=== PATIENT | female | born 1995 | race African-American/Black ===

== ENCOUNTER 2021-08-17 20:53 | Outpatient (CLI) | payer BC ==
[~2021-08-17] VITALS: Ht 147.3 cm; Wt 73.4 kg
[2021-08-17 21:17] VITALS: BP 135/83
[2021-08-17 21:18] LABS: BILIRUBIN,URINE NEGATIVE (NEGATIVE); CLARITY,URINE CLEAR; COLOR,URINE YELLOW; GLUCOSE, URINE (UA) NEGATIVE (NEGATIVE); KETONES,URINE 3+ (NEGATIVE); LEUKOCYTE ESTERASE ,URINE 1+ (NEGATIVE); NITRITE,URINE NEGATIVE (NEGATIVE); PROTEIN,URINE NEGATIVE (NEGATIVE)
[2021-08-17 21:25] LABS: BACTERIA,URINE LARGE /HPF; RBC,URINE 0-2 /HPF
[2021-08-17] MEDS ORDERED: ACETAMINOPHEN 500 MG TAB (TYLENOL) PO ONE (22:00)
[2021-08-17] MEDS ORDERED: LACTATED RINGERS 1,000 ML IV ONE (22:00)
[2021-08-17] MEDS ORDERED: ACETAMINOPHEN 500 MG TAB (TYLENOL) ONE (22:03)
[2021-08-17 23:30] VITALS: BP 140/74
[2021-08-17 23:35] VITALS: BP 139/73
[2021-08-17 23:40] VITALS: BP 137/79
[2021-08-18 00:05] VITALS: BP 138/75
--- NOTE | 2021-08-18 08:38 | Physician Query-Final Dx ---
Clinic Account Progress/Dx Physician Query: Please give diagnosis Please include # weeks gestation Date of Service August 17, 2021 at 20:53 JARON,MarAug 18, 2021 08:38
== END 2021-08-18 00:05 | disposition home or self-care (01) ==
LOC: WSo 20:53 → LDRP 21:02 → WSo 08-18 00:05
PROVIDERS: ATTEND Family Medicine
DX: O26.893 Other specified pregnancy related conditions, third trimester (principal); R10.9 Unspecified abdominal pain; Z3A.38 38 weeks gestation of pregnancy
CPT/HCPCS: 81000; 87088; 96360; G0463; 99213

== ENCOUNTER 2021-08-25 06:18 | Inpatient (IN) | payer BC ==
[2021-08-25] VITALS (63 sets, daily range): BP systolic 109–154; BP diastolic 54–89
[~2021-08-25] VITALS: Ht 147.3 cm; Wt 74.0 kg
[2021-08-25] MEDS ORDERED: MINERAL OIL 30 ML TOP PRN (07:45)
[2021-08-25 07:54] LABS: BASOPHILS % (AUTO) 0 % (0-10); EOSINOPHILS # (AUTO) 0.3 10^3/uL (0.0-0.3); EOSINOPHILS % (AUTO) 2 % (0-10); HEMATOCRIT 31 % (35-52); HEMOGLOBIN 10.6 g/dL (11.5-16.0); LYMPHOCYTES # (AUTO) 2.2 X 10^3 (1.0-4.0); LYMPHOCYTES % (AUTO) 15 % (12-44); MEAN CORPUSCULAR HEMOGLOBIN 29 pg (25-34); MEAN CORPUSCULAR HGB CONC 35 g/dL (32-36); MEAN CORPUSCULAR VOLUME 83 fL (80-99); MONOCYTES % (AUTO) 7 % (0-12); NEUTROPHILS # (AUTO) 10.4 X 10^3 (1.8-7.8); NEUTROPHILS % (AUTO) 74 % (42-75); PLATELET COUNT 208 10^3/uL (130-400)
[2021-08-25] MEDS: D5 LR IV SOLUTION 1,000 ML IV SCH ×2 (07:54→16:05)
[2021-08-25 08:15] LABS: CLARITY,URINE CLEAR; COLOR,URINE YELLOW; GLUCOSE, URINE (UA) NEGATIVE (NEGATIVE); KETONES,URINE NEGATIVE (NEGATIVE); NITRITE,URINE NEGATIVE (NEGATIVE); PROTEIN,URINE NEGATIVE (NEGATIVE)
[2021-08-25 08:16] LABS: BACTERIA,URINE TRACE /HPF; BILIRUBIN,URINE NEGATIVE (NEGATIVE); LEUKOCYTE ESTERASE ,URINE 1+ (NEGATIVE); WBC,URINE RARE /HPF
--- NOTE | 2021-08-25 10:03 | History & Physical-OB ---
OB - Chief Complaint & HPI Date/Time Date of Admission: Date of Admission: Aug 25, 2021 at 06:18 Date seen by a Provider: Aug 25, 2021 Time Seen by a Provider: 09:20 Chief Complaint/History OB-Reason for Admission/Chief: Induction of Labor Hx : 1 Hx Para: 0 Expected Date of Delivery: Aug 27, 2021 Gestational Age in Weeks: 39 Gestational Age in Days: 5 History of Labs A neg, Ab neg, Rub Imm HIV/RPR/HepB/C NR Normal 1 hr GTT GBS neg Allergies and Home Medications Allergies Coded Allergies: No Known Drug Allergies (Unverified , 08/17/21) Patient Home Medication List Home Medication List Reviewed: Yes OB - History Hx of Present Care: Yes Ultrasounds: Normal mid trimester US Obstetrical Complications: None Medical Complications: None Obstetrical History Hx : 1 Patient Past Medical History NA Social History/Family History Alcohol Use: Denies Use Recreational Drug Use: No Smoking Cessation: Never smoker 2nd Hand Smoke Exposure: No Immunizations Influenza Vaccine Up-to-Date: No; Not Current Hepatitis A: No Hepatitis B: No Tetanus Booster (TDap): Less than 5yrs Rubella: immune RPR/VDRL: Negative GBS Status: Negative HBsAG: Negative OB - Admission Exam Physical Exam Vitals: Vital Signs 08/25/21 07:56 Temp 36.4 Pulse 76 Resp 18 Pulse Ox 99 O2 Delivery Room Air HEENT: NCAT Heart: Rhythm Normal Lungs: Clear Abdomen: Gravid Cervical Dilatation: 4cm Effacement: 100% Station: -1 Membranes: Intact Heart Rate: 130's Accelerations: Accelerations Present Decelerations: No Decelerations Short Term Variability: Present Concrete Floor Installer Variability: Average (6-25) Contractions on Admission: 6-10 Minutes Apart Intensity: Moderate Pedersen Scoring Tool (Modified) Dilation (cm): 3-4cm (2) Effacement (%): 80-100% (3) Descent/Station: -1,0 (2) Cervix Consistency: Medium(1) Cervix Position: Middle/Mid-Position (1) Subtract 1 point for: Nulliparity (-1) Pedersen Score: 8 Labs Laboratory Tests Test 08/25/21 07:49 Range/Units White Blood Count 14.0 H 4.3-11.0 10^3/uL Red Blood Count 3.66 L 3.80-5.11 10^6/uL Hemoglobin 10.6 L 11.5-16.0 g/dL Hematocrit 31 L 35-52 % Mean Corpuscular Volume 83 80-99 fL Mean Corpuscular Hemoglobin 29 25-34 pg Mean Corpuscular Hemoglobin Concent 35 32-36 g/dL Red Cell Distribution Width 13.6 10.0-14.5 % Platelet Count 208 130-400 10^3/uL Mean Platelet Volume 12.0 9.0-12.2 fL Immature Granulocyte % (Auto) 1 % Neutrophils (%) (Auto) 74 42-75 % Lymphocytes (%) (Auto) 15 12-44 % Monocytes (%) (Auto) 7 0-12 % Eosinophils (%) (Auto) 2 0-10 % Basophils (%) (Auto) 0 0-10 % Neutrophils # (Auto) 10.4 H 1.8-7.8 X 10^3 Lymphocytes # (Auto) 2.2 1.0-4.0 X 10^3 Monocytes # (Auto) 1.0 0.0-1.0 X 10^3 Eosinophils # (Auto) 0.3 0.0-0.3 10^3/uL Basophils # (Auto) 0.0 0.0-0.1 10^3/uL Immature Granulocyte # (Auto) 0.1 0.0-0.1 10^3/uL Urine Color YELLOW Urine Clarity CLEAR Urine pH 6.0 5-9 Urine Specific [place] 1.010 L 1.016-1.022 Urine Protein NEGATIVE NEGATIVE Urine Glucose (UA) NEGATIVE NEGATIVE Urine Ketones NEGATIVE NEGATIVE Urine Nitrite NEGATIVE NEGATIVE Urine Bilirubin NEGATIVE NEGATIVE Urine Urobilinogen 0.2 < = 1.0 MG/DL Urine Leukocyte Esterase 1+ H NEGATIVE Urine RBC (Auto) NEGATIVE NEGATIVE Urine RBC NONE /HPF Urine WBC RARE /HPF Urine Squamous Epithelial Cells 2-5 /HPF Urine Crystals NONE /LPF Urine Bacteria TRACE /HPF Urine Casts NONE /LPF Urine Mucus NEGATIVE /LPF Urine Culture Indicated NO OB - Assessment/Plan/Diagnosis Assessment Assessment: induction of labor Admission Dx third trimester 39 week gestation Admission Status: Inpatient Order (span 2 midnights) Reason for Inpatient Admission: labor Plan Other Plan 26 yo F G1 @ 39.5 wga here for IOL Plan - GBS neg - AROM clear 0940 - Epidural ok if desired - Expectant management RAMSEY RAJPUT MD Aug 25, 2021 10:03
[2021-08-25] MEDS ORDERED: OXYTOCIN PRE-MIX DRIP 500 ML IV SCH (10:45)
[2021-08-25] MEDS ORDERED: OXYTOCIN PRE-MIX DRIP 500 ML IV ONE (10:50)
[2021-08-25] MEDS ORDERED: CATHETER FLUSH 10 ML SYR IV SCH (14:00)
[2021-08-25] MEDS ORDERED: fentaNYL 2 mcg/ml BUPIVA 0.125 100 ML ONE (16:46)
[2021-08-25] MEDS ORDERED: fentaNYL INJ 100 MCG/2 ML AMP ONE (17:01)
[2021-08-25] MEDS ORDERED: BUPIVACAINE 0.25% 10 ML (SENSORCAINE) VIAL ONE (17:01)
[2021-08-25] MEDS ORDERED: ONDANSETRON 4 MG/2 ML (SDV) Z0FRAN IV PRN (17:45)
[2021-08-25] MEDS ORDERED: EPIDURAL (fentaNYL 2 MCG/ML BUPIVA 0.125%)100 ML BAG EPI PRN (17:45)
[2021-08-25] MEDS ORDERED: NALOXONE 0.4 MG/ML 1 ML (NARCAN) VIAL IV PRN (17:45)
[2021-08-25] MEDS ORDERED: fentaNYL INJ 100 MCG/2 ML AMP INJ ONE (17:45)
[2021-08-25] MEDS ORDERED: LACTATED RINGERS 1,000 ML IV ONE ×2 (17:45)
[2021-08-25] MEDS ORDERED: LIDOCAINE/EPI 2% 1:200,00 (XYLOCAINE) 10 ML VIAL ONE (21:40)
[2021-08-26] VITALS (13 sets, daily range): BP systolic 112–132; BP diastolic 56–91
[2021-08-26] MEDS: OXYTOCIN PRE-MIX DRIP 500 ML IV SCH ×2 (01:04→01:57)
--- NOTE | 2021-08-26 01:14 | OB Labor & Delivery Record ---
Vag Delivery Note Vag Delivery Note Date of Delivery: 08/26/21 Preoperative Diagnosis: Grecia Estevez is a (26 /Para 1 / 0, Gestational Age (wks)39.5 here for IOL Postoperative Diagnosis: Same Surgeon: RAMSEY RAJPUT MD Sausage Stuffer: None Anesthesia: Epidural Delivery Type: @ 0037 Findings: Viable female infant, apgars 7/9, weight Lacerations: Intact placenta with 3 vessel cord. No nuchal cord, body cord or shoulder dystocia Estimated Blood Loss: 125 ml Complications: None Condition: Stable Description of Procedure: The patient is a 26 year old female who presented for IOL. She was admitted and informed consent was obtained. Her labor course was unremarkable. She progressed to complete dilatation and began to push. She was then set up for delivery. The 's head was delivered atraumatically in the BUBBA position. The shoulders and remainder of the 's body were then delivered without difficulty. Upon delivery, the head was held below the level of the perineum and the mouth and nares were bulb suctioned. The cord was doubly clamped and cut by FOB after 3 min delay and the was attended to by the pediatric staff on maternal abdomen. An intact placenta with 3-vessel cord delivered via Joy and there was found to be minimal bleeding.~ Vigorous fundal massage was performed and the fundus was found to be firm. IV oxytocin was given. Examination of the vagina and perineum revealed a 1st degree laceration repaired in the usual fashion with 3-0 vicryl suture. Following the repair, sponge, instrument and needle counts were correct. Mom and baby were both in stable condition in the labor suite. Vitals - Labs Vital Signs - I&O Vital Signs Date Time Temp Pulse Resp B/P (MAP) Pulse Ox O2 Delivery O2 Flow Rate FiO2 08/25/21 23:30 88 18 128/63 (84) Room Air 08/25/21 23:15 76 18 116/76 (89) Room Air 08/25/21 23:00 80 18 120/78 (92) Room Air 08/25/21 22:45 18 120/74 (89) Room Air 08/25/21 22:30 84 18 128/76 (93) Room Air 08/25/21 22:15 81 18 132/80 (97) Room Air 08/25/21 22:00 115 18 140/69 (92) 99 Room Air 08/25/21 21:45 88 18 117/58 (77) Room Air 08/25/21 21:30 80 18 112/54 (73) Room Air 08/25/21 21:15 36.4 85 18 123/64 (83) 98 Room Air 08/25/21 21:00 85 18 124/64 (84) Room Air 08/25/21 20:45 82 18 132/73 (92) Room Air 08/25/21 20:30 77 18 125/72 (89) Room Air 08/25/21 20:15 73 18 125/73 (90) Room Air 08/25/21 20:00 72 18 121/73 (89) Room Air 08/25/21 19:45 36.8 69 18 117/68 (84) Room Air 08/25/21 19:30 82 18 117/68 (84) Room Air 08/25/21 19:15 77 18 116/66 (83) Room Air 08/25/21 19:00 89 18 118/70 (86) Room Air 08/25/21 18:45 74 18 124/72 (89) Room Air 08/25/21 18:30 68 18 125/66 (85) Room Air 08/25/21 18:15 Room Air 08/25/21 18:05 72 18 119/69 (86) Room Air 08/25/21 18:00 66 18 115/66 (82) Room Air 08/25/21 17:55 65 18 125/73 (90) Room Air 08/25/21 17:50 67 18 117/71 (86) Room Air 08/25/21 17:45 71 18 123/77 (92) Room Air 08/25/21 17:40 69 18 121/76 (91) Room Air 08/25/21 17:36 75 18 125/72 (89) Room Air 08/25/21 17:33 71 18 128/75 (92) Room Air 08/25/21 17:30 36.6 71 18 133/77 (95) Room Air 08/25/21 17:28 75 18 131/78 (95) Room Air 08/25/21 17:25 76 18 132/74 (93) Room Air 08/25/21 17:20 76 18 132/77 (95) Room Air 08/25/21 17:15 93 18 142/78 (99) Room Air 08/25/21 17:10 81 18 154/84 (107) Room Air 08/25/21 17:00 88 18 109/64 (79) Room Air 08/25/21 16:45 72 18 139/89 (106) Room Air 08/25/21 16:30 80 18 135/88 (104) Room Air 08/25/21 16:15 72 18 137/88 (104) Room Air 08/25/21 16:00 81 18 122/73 (89) Room Air 08/25/21 15:45 80 18 121/73 (89) Room Air 08/25/21 15:30 75 18 122/70 (87) Room Air 08/25/21 15:15 78 18 142/77 (98) Room Air 08/25/21 15:00 77 18 145/68 (93) Room Air 08/25/21 14:45 Room Air 08/25/21 14:30 36.4 69 18 119/60 (79) Room Air 08/25/21 14:15 81 18 126/78 (94) Room Air 08/25/21 14:00 80 18 130/75 (93) Room Air 08/25/21 13:45 82 18 121/59 (79) Room Air 08/25/21 13:30 76 18 131/72 (91) Room Air 08/25/21 13:15 86 18 123/82 (96) Room Air 08/25/21 13:00 83 18 117/73 (88) Room Air 08/25/21 12:45 78 18 109/56 (73) Room Air 08/25/21 12:30 113 18 116/79 (91) Room Air 08/25/21 12:15 77 18 123/84 (97) Room Air 08/25/21 12:00 36.3 82 18 131/81 (98) Room Air 08/25/21 11:45 80 18 130/81 (97) Room Air 08/25/21 11:30 82 18 130/76 (94) Room Air 08/25/21 11:15 81 18 132/77 (95) Room Air 08/25/21 11:00 88 18 129/80 (96) Room Air 08/25/21 10:00 82 18 133/83 (100) Room Air 08/25/21 09:40 82 18 130/83 (99) Room Air 08/25/21 09:25 36.7 08/25/21 07:56 36.4 76 18 99 Room Air I & O0 08/26/21 06:59 Intake Total 2000 ml Balance 2000 ml Labs Laboratory Tests 08/25/21 07:49: White Blood Count 14.0H, Red Blood Count 3.66L, Hemoglobin 10.6L, Hematocrit 31L , Mean Corpuscular Volume 83, Mean Corpuscular Hemoglobin 29, Mean Corpuscular Hemoglobin Concent 35, Red Cell Distribution Width 13.6, Platelet Count 208, Mean Platelet Volume 12.0, Immature Granulocyte % (Auto) 1, Neutrophils (%) (Auto) 74, Lymphocytes (%) (Auto) 15, Monocytes (%) (Auto) 7, Eosinophils (%) (Auto) 2, Basophils (%) (Auto) 0, Neutrophils # (Auto) 10.4H, Lymphocytes # (Auto) 2.2, Monocytes # (Auto) 1.0, Eosinophils # (Auto) 0.3, Basophils # (Auto) 0.0, Immature Granulocyte # (Auto) 0.1, Urine Color YELLOW, Urine Clarity CLEAR, Urine pH 6.0, Urine Specific [place] 1.010L, Urine Protein NEGATIVE, Urine Glucose (UA) NEGATIVE, Urine Ketones NEGATIVE, Urine Nitrite NEGATIVE, Urine Bilirubin NEGATIVE, Urine Urobilinogen 0.2, Urine Leukocyte Esterase 1+H, Urine RBC (Auto) NEGATIVE, Urine RBC NONE, Urine WBC RARE, Urine Squamous Epithelial Cells 2-5, Urine Crystals NONE, Urine Bacteria TRACE, Urine Casts NONE, Urine Mucus NEGATIVE, Urine Culture Indicated NO RAMSEY RAJPUT MD Aug 26, 2021 01:14
[2021-08-26] MEDS ORDERED: WITCH HAZEL(TUCKS) 40 EA JAR TOP PRN (01:15)
[2021-08-26] MEDS ORDERED: BENZOCAINE/MENTHOL (DERMOPLAST) 56 ML CAN TP PRN (01:15)
[2021-08-26] MEDS ORDERED: IBUPROFEN 600 MG (MOTRIN) TAB PO ONE (02:29)
[2021-08-26] MEDS ORDERED: BENZOCAINE/MENTHOL (DERMOPLAST) 56 ML CAN TP ONE (02:29)
[2021-08-26] MEDS ORDERED: WITCH HAZEL(TUCKS) 40 EA JAR ONE (02:29)
[2021-08-26] MEDS: IBUPROFEN 600 MG (MOTRIN) TAB PO SCH ×3 (03:19→22:44)
[2021-08-26] MEDS ORDERED: CATHETER FLUSH 10 ML SYR IV SCH (06:00)
[2021-08-26] MEDS: DOCUSATE SODIUM 100 MG (COLACE) CAP PO SCH ×2 (08:11→20:18)
[2021-08-26] MEDS: ACETAMINOPHEN 500 MG TAB (TYLENOL) PO SCH ×2 (08:11→16:11)
[2021-08-27 03:46] VITALS: BP 110/58
[2021-08-27] MEDS: ACETAMINOPHEN 500 MG TAB (TYLENOL) PO SCH ×2 (03:48→09:47)
[2021-08-27 05:59] LABS: BASOPHILS # (AUTO) 0.1 10^3/uL (0.0-0.1); BASOPHILS % (AUTO) 0 % (0-10); EOSINOPHILS # (AUTO) 0.3 10^3/uL (0.0-0.3); EOSINOPHILS % (AUTO) 2 % (0-10); HEMATOCRIT 28 % (35-52); HEMOGLOBIN 9.6 g/dL (11.5-16.0); LYMPHOCYTES # (AUTO) 2.9 10^3/uL (1.0-4.0); LYMPHOCYTES % (AUTO) 23 % (12-44); MEAN CORPUSCULAR HEMOGLOBIN 29 pg (25-34); MEAN CORPUSCULAR HGB CONC 34 g/dL (32-36); MEAN CORPUSCULAR VOLUME 84 fL (80-99); MEAN PLATELET VOLUME 12.1 fL (9.0-12.2); MONOCYTES # (AUTO) 0.9 10^3/uL (0.0-1.0); MONOCYTES % (AUTO) 8 % (0-12); NEUTROPHILS % (AUTO) 65 % (42-75); PLATELET COUNT 179 10^3/uL (130-400); WHITE BLOOD COUNT 12.2 10^3/uL (4.3-11.0)
[2021-08-27 09:46] VITALS: BP 133/75
[2021-08-27] MEDS: DOCUSATE SODIUM 100 MG (COLACE) CAP PO SCH (09:47)
[2021-08-27] MEDS: IBUPROFEN 600 MG (MOTRIN) TAB PO SCH (09:47)
--- NOTE | 2021-08-27 10:48 | Discharge Summary ---
Diagnosis/Chief Complaint Date of Admission Aug 25, 2021 at 06:18 Date of Discharge 08/27/21 Admission Diagnosis Admission Diagnosis Third Trimester 39 week gestation Discharge Diagnosis Uncomplicated Delivered term female Post anemia Discharge Summary-Simple/Stand Procedures Epidural placement Uncomplicated 1st degree perineal repair Discharge Physical Examination Allergies: Coded Allergies: No Known Drug Allergies (Unverified , 08/17/21) Vitals & I&Os Vital Sign - Last 12Hours Date Time Temp Pulse Resp B/P (MAP) Pulse Ox O2 Delivery O2 Flow Rate FiO2 08/27/21 09:46 36.5 72 18 133/75 (94) 99 Room Air 08/26/21 00:37 15.00 Intake and Output 08/26/21 23:59 Intake Total 500 ml Balance 500 ml General Appearance: Alert, Oriented X3, Cooperative, No Acute Distress Respiratory: Clear to Auscultation, Normal Air Movement Cardiovascular: Regular Rate, No Murmurs Abdominal: Normal Bowel Sounds, Soft, No Tenderness, No Masses, Other (fundus firm and at umbilicus) Extremities: Other (1+ edema bilateral LE) Neuro: Normal Speech, Strength at 5/5 X4 Ext, Sensation Intact, Cranial Nerves 3-12 NL Hospital Course Was the Problem List Reviewed?: Yes See final discharge diagnosis. Discussion & Recommendations 26 yo G1 now P1 delivered term female infant via uncomplicated @ 39 weeks. Discharge Condition at discharge stable Instructions to patient/family Please see electronic discharge instructions given to patient. Discharge Medications Reviewed and agree with Discharge Medication list on patient's Discharge Instruction sheet Copy Copies To 1: RAMSEY RAJPUT MD, HOLLY R MD Aug 27, 2021 10:48
[2021-08-27] MEDS ORDERED: IBUP-844 PO (10:50)
[2021-08-27] MEDS ORDERED: FERR-65 PO (10:50)
[2021-08-27] MEDS ORDERED: DOCU100C37 PO (10:50)
--- NOTE | 2021-08-27 10:51 | Discharge Summary ---
Discharge Inst-[facility] Reconcile Patient Problems Problems Reviewed?: Yes Depart Medications New, Converted or Re-Newed RX: Transmitted to Pharmacy New Medications: Ferrous Sulfate (Feosol) 325 Mg (65 Mg Iron) Tablet 325 MG PO DAILY, #30 TAB Docusate Sodium (Docusate Sodium) 100 Mg Capsule 100 MG PO BID, #28 CAP Ibuprofen (Ibu) 600 Mg Tablet 600 MG PO Q6HR, #90 TAB Follow Up/Instructions Goal/Follow Up: 6 week f.u with Wanda in [place] Activity Activity: Activity as Tolerated Driving Instructions: You May Drive NO SMOKING: NO SMOKING Nothing Inside Vagina: No Douching, No [place], No Tampons Diet Discharge Diet: No Restrictions Symptoms to Report to DrCayden: Swelling Increased, Bleeding Excessive, Fever Over 101 Degrees F For Any Problems or Questions: Contact Your Physician RAMSEY RAJPUT MD Aug 27, 2021 10:51
--- NOTE | 2021-08-29 14:46 | Anesthesia-Regional Post-Op ---
Regional Patient Condition Mental Status: Alert, Oriented x3 Circulation: Same as Pre-Op Headache: Absent Sensation: Full Recovery Motor Block: Absent Post Op Complications Complications None Follow Up Care/Instructions Patient Instructions None needed. Anesthesia/Patient Condition Patient is doing well, no complaints, stable vital signs, no apparent adverse anesthesia problems. No complications reported per nursing. NAOMY AMBROCIO CRNA Aug 29, 2021 14:46
== END 2021-08-27 12:31 | disposition home or self-care (01) | DRG 807 ==
LOC: LDRP 06:18
PROVIDERS: ADMIT Family Medicine; ATTEND Family Medicine
PROC: 3E033VJ Introduction of Other Hormone into Peripheral Vein, Percutaneous Approach (ICD-10-PCS; 2021-08-25)
PROC: 10E0XZZ Delivery of Products of Conception, External Approach (ICD-10-PCS; principal; 2021-08-26)
PROC: 0HQ9XZZ Repair Perineum Skin, External Approach (ICD-10-PCS; 2021-08-26)
DX: O70.0 First degree perineal laceration during delivery (principal); Z37.0 Single live birth; Z3A.39 39 weeks gestation of pregnancy; O90.81 Anemia of the puerperium; D64.9 Anemia, unspecified
CPT/HCPCS: 36415; 81000; 83033; 85025; 86850; 86900; 86901